=== PATIENT | female | born 1990 | race African-American/Black ===

== ENCOUNTER 2020-08-22 14:18 | Emergency (ER) | payer SELFPAY ==
[~2020-08-22] VITALS: Ht 165.1 cm; Wt 81.6 kg
== END 2020-08-22 15:53 | disposition home or self-care (01) ==
LOC: FSED 14:27
DX: G89.11 Acute pain due to trauma (principal); M54.9 Dorsalgia, unspecified; M54.2 Cervicalgia; V44.6XXA Car passenger injured in collision with heavy transport vehicle or bus in traffic accident, initial encounter
CPT/HCPCS: 99283